=== PATIENT | male | born 1955 | race Caucasian/White ===

== ENCOUNTER 2023-08-16 22:05 | Inpatient (IN) | payer MEDICARE, OTHER, SELFPAY ==
[2023-08-16 20:10] VITALS: BP 117/96
[2023-08-16 20:36] LABS: % Basophils 0.4 % (0-2); % Eosinophils 0.1 % (0-6); % Immature Granulocytes 0.4 % (0-0.5); % Monocytes 13.5 % (1.7-9.3); % Neutrophils 77.6 % (42.2-75.2); Absolute Basophils 0.1 10^3/uL (0-0.2); Absolute Immature Granulocytes 0.1 10^3/uL (0-0.05); Absolute Lymphocytes 1.1 10^3/uL (1.2-3.4); Absolute Monocytes 1.9 10^3/uL (0.1-0.6); Absolute Neutrophils 10.7 10^3/uL (1.4-6.5); Hematocrit 36.7 % (39.0-52.0); Hemoglobin 12.1 g/dL (13.0-18.0); Mean Corpuscular Hgb 31.6 pg (27.0-31.0); Mean Corpuscular Volume 95.8 fL (80.0-94.0); Mean Platelet Volume 9.9 fL (7.4-10.4); Nucleated Red Blood Cells % 0 % (-); Platelet Count 142 10^3/uL (130-400); Red Blood Cell Count 3.83 10^6/uL (4.70-6.10); Red Cell Dist. Width 15.1 % (11.5-14.5); White Blood Cell Count 13.8 10^3/uL (4.8-10.8)
[2023-08-16 20:40] LABS: Urine Albumin Trace (Neg - Trace); Urine Bilirubin 1+ (Negative); Urine Character Very Cloudy (Clear); Urine Color Amber; Urine Glucose Negative (Negative); Urine Ketone 1+ (Negative); Urine Leukocyte 1+ (Negative); Urine Nitrite Positive (Negative); Urine Occult Blood Trace (Negative); Urine Specific Gravity 1.015 (<1.030); Urine Urobilinogen 4+ (Neg - 1+); Urine pH 6.5 (5.0-9.0)
[2023-08-16 20:47] LABS: Lactic Acid 3.7 mmol/L (0.7-2.0)
[2023-08-16 20:51] LABS: Urine Bacteria Many (Negative)
[2023-08-16 20:52] LABS: Urine Red Blood Cell 0-2 /HPF (0-2)
[2023-08-16 20:53] LABS: Urine White Cell 26-30 /HPF (0-5)
[2023-08-16 20:55] LABS: ALT (SGPT) 13 U/L (0-50); AST (SGOT) 23 U/L (17-59); Albumin 4.1 g/dl (3.5-5.0); Alkaline Phosphatase 70 U/L (38-126); Blood Urea Nitrogen 22 mg/dl (9-20); Calcium 9.4 mg/dl (8.4-10.2); Carbon Dioxide 26 mmol/L (22-30); Chloride 103 mmol/L (98-107); Glucose 108 mg/dl (70-99); Potassium 4.1 mmol/L (3.5-5.1); Sodium 140 mmol/L (135-145); Total Protein 6.9 g/dl (6.3-8.2); eGFR > 60.00
[2023-08-16 21:00] VITALS: BP 110/62
[2023-08-16] MEDS: TYLENOL/FEVERALL 650 MG RECTAL (21:00)
[2023-08-16] MEDS: ROCEPHIN 1000 MG IV (21:00)
--- NOTE | 2023-08-16 21:04 | ED.GENMED ---
History of Present Illness
General
Chief Complaint: Fever
Source: patient and records
Exam Limitations: clinical condition, non verbal-adult, altered mental status and dementia
Time Seen by Provider: 08/16/23 20:36
Nursing documentation reviewed up to this point in time: agreed with
History of Present Illness
History of Present Illness:
68-year-old male from local dementia unit presents with fatigue fever lethargy urinary incontinence
Here is febrile not offering any history, history obtained through the transfer record
Past History
Past History
ED Past Medical History: CAD, Hypercholesterolemia, NIDDM and Other (dementia)
Social History
Tobacco: Non-smoker
Drug: None
Living: correction
Employment: Not employed
Review of Systems
Review of Systems
Other source history: transfer record
All Other Systems: Not applicable
Phy Exam
Physical Exam
Physical Exam:
Physical Exam
General: Febrile nonverbal 68 male
Neck: Dry lip
Heart: Tachycardia
Lungs: no acute respiratory distress. clear bilaterally
Abdomen: Not tender
Neuro: Nonverbal makes eye contact
Skin: no rash
Psychiatric: Unable to assess
Extremities: no edema
Course
Orders/Labs/Results
Orders:
Orders
08/16/23 20:09
Electrocardiogram (*1) Urgent
Reason for Study: Other
Other Reason for Exam: Possible Sepsis
Cardiac Monitoring- Treatment ONCE
EKG- Treatment ONCE
IV Insert/Care/Rem.- Treatment PRN
Straight cath- Treatment ONCE
O2 Therapy [RESP] Urgent
Titrate/Wean O2 to maintain O2 sat greater than (%): 93
Special Instructions: TO MAINTAIN CONTINUOUS O2 SATS > OR = 93%
Pulse Ox/cont/shift [RESP] Urgent
Quantity: 1
Special Instructions: CONTINUOUS
08/16/23 20:18
Complete Blood Count/With Diff Urgent
Comprehensive Metabolic Panel Urgent
Lactic Acid Q4H
Comment: ON ICE, CANCEL 2ND ORDER IF FIRST LACTIC ACID LEVEL <2
Urinalysis Reflex To Culture Urgent
Date Specimen was Collected: 08/16/23
Time Specimen was Collected: 20:09
Urine Microscopic Reflex Cult Urgent
Urine Culture Urgent
ANDRZEJ Source: U
Specimen Description:
Date Specimen was Collected: 08/16/23
Time Specimen was Collected: 20:09
08/16/23 20:54
Add On- LAB Urgent
Tests Added?: depakene
Abdomen/Pelvis wo Contrast CT [CT Abd/pelvis Wo Iv Cont] Urgent
Comment:
Reason For Exam: fever uti
CR Chest Portable - 1 View Urgent
Comment:
Reason For Exam: fever
Reason Study Needs to be Portable: Unable to Transport
08/16/23 20:55
Acetaminophen [Tylenol/Feverall] 650 mg RECTAL NOW STA
CefTRIAXone [Rocephin] 1,000 mg IV NOW STA
08/16/23 20:57
Depakane Urgent
Comment: COLLECT. PLAIN RED TOP.
08/17/23 00:15
Lactic Acid Q4H
Comment: ON ICE, CANCEL 2ND ORDER IF FIRST LACTIC ACID LEVEL <2
Abnormal Lab Results
08/16/23
20:18
WBC 13.8 H 10^3/uL
(4.8-10.8)
RBC 3.83 L 10^6/uL
(4.70-6.10)
Hgb 12.1 L g/dL
(13.0-18.0)
Hct 36.7 L %
(39.0-52.0)
MCV 95.8 H fL
(80.0-94.0)
MCH 31.6 H pg
(27.0-31.0)
RDW 15.1 H %
(11.5-14.5)
Abs Immat Gran (auto) 0.1 H 10^3/uL
(0-0.05)
Absolute Neuts (auto) 10.7 H 10^3/uL
(1.4-6.5)
Absolute Lymphs (auto) 1.1 L 10^3/uL
(1.2-3.4)
Absolute Monos (auto) 1.9 H 10^3/uL
(0.1-0.6)
Neutrophils % 77.6 H %
(42.2-75.2)
Lymphocytes % 8.0 L %
(20.5-51.1)
Monocytes % 13.5 H %
(1.7-9.3)
BUN 22 H mg/dl
(9-20)
Glucose 108 H mg/dl
(70-99)
Lactic Acid 3.7 H mmol/L
(0.7-2.0)
Total Bilirubin 2.0 H mg/dl
(0.2-1.3)
Urine Ketones 1+ A
(Negative)
Ur Occult Blood Reflex Trace A
(Negative)
Urine Nitrite (Reflex) Positive A
(Negative)
Urine Bilirubin 1+ A
(Negative)
Urine Urobilinogen 4+ A
(Neg - 1+)
Leukocyte Esterase Rfl 1+ A
(Negative)
Urine WBC (Reflex) 26-30 A /HPF
(0-5)
Urine Bacteria (Reflex) Many A
(Negative)
08/16/23 20:18
08/16/23 20:18
Vital Signs
Initial and Last Documented VS:
Initial Vital Signs
Temp Pulse Resp BP Pulse Ox
101.0 F H 84 14 117/96 98
08/16/23 20:10 08/16/23 20:10 08/16/23 20:10 08/16/23 20:10 08/16/23 20:10
Last Documented Vital Signs
Temp Pulse Resp BP Pulse Ox
101.0 F H 83 14 117/96 98
08/16/23 20:10 08/16/23 20:30 08/16/23 20:10 08/16/23 20:10 08/16/23 20:45
MDM/Problems Addressed
Differential Diagnosis Includes:
Sepsis UTI bacteremia pneumonia
MDM/Problems Addressed:
Fever confusion
Chronic conditions affecting care: DM, HTN and Neurological disorder
Acute Exacerbation and/or Progression of Chronic Illness: DM, HTN and Neurological disorder
*Radiology
Radiology exam reviewed: preliminary read by ED provider
*Pulse Oximetry
Patient hypoxic: no
*EKG
Interpreted by ED Provider?: Yes
Interpretation: abnormal
Comparison EKG: no comparison EKG present
Heart Rate: 88
Rate: normal
Rhythm: sinus
Ischemia: non-specific ST changes
*Distribution Spec Interpretation
Rate: normal
Interpretation: normal
Heart Rate: 88
Rhythm: sinus
*Critical Care Note
Total Time (30-74mins, 75-104mins- exclusive of procedures): 15
Update Note
Update Note:
Update febrile nonverbal male, looks like urinary source, urine cultures are pending will start on antibiotics, check CT to rule out any urinary obstruction also check x-ray of the chest will require admission
ED Attending Note
-
Portions of this chart may have been created with voice recognition software.� Occasional wrong word or��sound alike� substitutions may have occurred due to the inherent limitations of voice recognition software.
Discharge Plan
Departure
Prescriptions:
No Action
atorvastatin 40 MG tablet
40 mg PO HS
acetaminophen 325 MG tablet
650 mg PO Q4HPRN MDD 3000 mg PRN (Reason: mild pain/fever >101)
thiamine HCl (vitamin B1) 100 MG tablet
100 mg PO DAILY
melatonin 3 MG tablet
3 mg PO HS
clopidogrel 75 MG tablet
75 mg PO DAILY
amlodipine 5 MG tablet
2.5 mg PO DAILY
divalproex 500 MG tablet,delayed release (DR/EC)
500 mg PO BID
Rx Instructions:
take with 250 mg tab for total of 750 mg
magnesium hydroxide 30 ML suspension
30 ml PO [id number] PRN (Reason: if no bm x 3 days)
bisacodyl [OneLAX Bisacodyl] 10 MG suppository
10 mg KS DAILYPRN PRN (Reason: if no bm 24 hrs after mom)
diphenhydramine HCl [Banophen] 25 MG capsule
25 mg PO Q6HPRN PRN (Reason: itching)
Enema 135 ML enema
118 ml KS DAILYPRN PRN (Reason: if no bm 24 hrs after bisacodyl supp)
nitroglycerin 0.4 MG tablet, sublingual
0.4 mg sublingual [id number] PRN (Reason: chest pain)
quetiapine [Seroquel] 50 MG tablet
25 mg PO HS
divalproex [Depakote] 250 mg Tablet,Delayed Release (Dr/Ec)
250 mg PO BID
Rx Instructions:
take with 500 mg tab for total of 750 mg
Theragen Tablet
1 tab PO DAILY
risperidone [Risperdal] 0.5 mg Tablet
0.5 mg PO DAILY
clonazepam 0.25 mg Tablet,Disintegrating
0.25 mg PO Q12H
Aveeno Anti-Itch 1-3 % Lotion
1 applic TOPICAL Q6HPRN PRN (Reason: puritis)
cholecalciferol (vitamin D3) 50 mcg (2,000 unit) Tablet
50 mcg PO NOON
Referrals:
Janet Carmona CRNP [Family Provider] -
Interventions
Interventions:
*Risk Screen - Suicide Last Done: 08/16/23 20:10
*General Assessment Last Done: 08/16/23 20:10
*Neglect/Abuse Screening Last Done: 08/16/23 20:10
ED- Fall Risk Assessment Last Done: 08/16/23 20:52
ED- Neurological Assessment Last Done: 08/16/23 20:52
ED-Skin Assessment Last Done: 08/16/23 20:52
Discharge Date and Time
Print Language: YI
--- NOTE | 2023-08-16 21:56 | HPS.HSE ---
Family Physician
-
Family Physician: KVNG Espinoza
Chief Complaint
-
lethargy, fever
History of Present Illness
68-year-old male past medical history of CAD, hypertension, hypercholesteremia, diabetes, dementia, presenting from dementia unit for fatigue, lethargy and urine incontinence and fever. No history can be obtained from patient.
Medical History
Past Medical History
Past Medical History: Reports Other (CAD, hypertension, hypercholesteremia, diabetes, dementia,)
Past Surgical History: Reports None
Social History
Tobacco: Non-smoker
Alcohol: None
Drug: None
Family History
Family History: Not pertinent
Allergies / Home Medications
Allergies reflects when Allergies were last updated in [facility].
Home Medications with original date entered in [facility]
Allergy/Medication List:
Allergies
Allergy/AdvReac Type Severity Reaction Status Date / Time
No Known Allergies Allergy Unverified 07/23/21 02:09
Home Medications
acetaminophen 325 mg tablet 650 mg PO Q4HPRN PRN mild pain/fever >101 07/22/21
amlodipine 5 mg tablet 2.5 mg PO DAILY 07/22/21
atorvastatin 40 mg tablet 40 mg PO HS 07/22/21
bisacodyl 10 mg rectal suppository (OneLAX Bisacodyl) 10 mg ND DAILYPRN PRN if no bm 24 hrs after mom 07/22/21
clopidogrel 75 mg tablet 75 mg PO DAILY 07/22/21
diphenhydramine HCl 25 mg capsule (Banophen) 25 mg PO Q6HPRN PRN itching 07/22/21
divalproex 500 mg tablet,delayed release 500 mg PO BID 07/22/21
magnesium hydroxide 400 mg/5 mL oral suspension 30 ml PO [id number] PRN if no bm x 3 days 07/22/21
melatonin 3 mg tablet 3 mg PO HS 07/22/21
nitroglycerin 0.4 mg sublingual tablet 0.4 mg sublingual [id number] PRN chest pain 07/22/21
quetiapine 50 mg tablet (Seroquel) 25 mg PO HS 07/22/21
sodium phosphates 19 gram-7 gram/118 mL enema (Enema) 118 ml ND DAILYPRN PRN if no bm 24 hrs after bisacodyl supp 07/22/21
thiamine HCl (vitamin B1) 100 mg tablet 100 mg PO DAILY 07/22/21
cholecalciferol (vitamin D3) 50 mcg (2,000 unit) tablet 50 mcg PO NOON 08/16/23
clonazepam 0.25 mg disintegrating tablet 0.25 mg PO Q12H 08/16/23
divalproex 250 mg tablet,delayed release (Depakote) 250 mg PO BID 08/16/23
pramoxine-calamine 1 %-3 % lotion (Aveeno Anti-Itch) 1 applic topical Q6HPRN PRN puritis 08/16/23
risperidone 0.5 mg tablet (Risperdal) 0.5 mg PO DAILY 08/16/23
therapeutic multivitamin 1 tab PO DAILY 08/16/23
Review of Systems
-
History Source: [facility]
A 12 point ROS was completed and negative except as noted: No
Physical Exam
Vital Signs
Vital Signs
Temp Pulse Resp BP Pulse Ox
101.0 F H 76 15 110/62 86
08/16/23 20:10 08/16/23 21:45 08/16/23 21:45 08/16/23 21:00 08/16/23 21:30
Physical Exam
General: Well Developed, Well Nourished and No Apparent Distress
HEENT: NormoCephalic, Moist mucous membranes and Atraumatic
Respiratory: Clear
Cardiac: S1/S2 and Regular Rhythm; No Murmur or Rub
GI: Soft, Non Tender, Non Distended and Normal Bowel Sounds; No Organomegaly
Rectal: Deferred by Provider
Musculoskeletal: No Clubbing, No Cyanosis and No Edema
Skin: No Rash
Neuro: Nonfocal/grossly intact
Laboratory Results
-
08/16/23 20:18
08/16/23 20:18
Laboratory Results
Lactic Acid 3.7 mmol/L (0.7-2.0) H 08/16/23 20:18
Total Bilirubin 2.0 mg/dl (0.2-1.3) H 08/16/23 20:18
AST 23 U/L (17-59) 08/16/23 20:18
ALT 13 U/L (0-50) 08/16/23 20:18
Alkaline Phosphatase 70 U/L (38-126) 08/16/23 20:18
Data Reviewed
-
Lab Data: Labs Reviewed by me
Old Records: Reviewed
Impression/Plan
-
IMPRESSION:
PLAN:
# Sepsis (fever, leukocytosis) secondary to urinary tract fraction
-Urinalysis shows 26-30 WBC, cloudy urine,
-IV fluids
-Urine culture, blood culture
-Ceftriaxone
-Check CT abdomen pelvis to rule out obstructing stone
-Patient likely cannot take oral medications at this time, hold medications, n.p.o.
Coronary artery disease
-Continue Plavix when able
Essential hypertension
-Continue amlodipine when able
Hypercholesterolemia
-Continue statin when able
Type 2 diabetes
Dementia
History of depression/psychosis
-Continue Risperdal, Seroquel, Depakote, clonazepam when more awake and alert
Full code
DVT prophylaxis�heparin
N.p.o.
[2023-08-16 22:00] VITALS: BP 115/55
[2023-08-16 22:03] LABS: Depakane 38.6 ug/ml (50.0-120.0)
[2023-08-16 23:42] VITALS: BP 127/57; BMI 19.2
--- NOTE | 2023-08-16 23:44 | PTCARENOTE ---
Receive pt from ED via stretcher. Pt bedrest, pulled over onto bed. Nonverbal but does turn head to his name being called. Resting comfortably in bed. Oriented to floor, call gutierrez within reach.
[2023-08-16] MEDS: NSS 1000 IV (23:48)
[2023-08-16] MEDS: ZITHROMAX INFUSION 250 IV (23:52)
[2023-08-17 00:52] LABS: Lactic Acid 0.6 mmol/L (0.7-2.0)
[2023-08-17 07:02] VITALS: BP 153/65
[2023-08-17 07:57] LABS: % Basophils 0.3 % (0-2); % Eosinophils 0.2 % (0-6); % Immature Granulocytes 0.5 % (0-0.5); % Lymphocytes 12.5 % (20.5-51.1); % Monocytes 13.8 % (1.7-9.3); % Neutrophils 72.7 % (42.2-75.2); Absolute Immature Granulocytes 0.1 10^3/uL (0-0.05); Absolute Lymphocytes 1.2 10^3/uL (1.2-3.4); Absolute Monocytes 1.3 10^3/uL (0.1-0.6); Absolute Neutrophils 7.1 10^3/uL (1.4-6.5); Hematocrit 30.1 % (39.0-52.0); Hemoglobin 10.6 g/dL (13.0-18.0); Mean Corp Hgb Conc. 35.2 g/dL (33.0-37.0); Mean Corpuscular Hgb 32.2 pg (27.0-31.0); Mean Corpuscular Volume 91.5 fL (80.0-94.0); Mean Platelet Volume 10.4 fL (7.4-10.4); Nucleated Red Blood Cells % 0 % (-); Platelet Count 115 10^3/uL (130-400); Red Blood Cell Count 3.29 10^6/uL (4.70-6.10); White Blood Cell Count 9.7 10^3/uL (4.8-10.8)
[2023-08-17] MEDS: FLUSH (NSS) 1 FLUSH IV (08:06)
[2023-08-17] MEDS: HEPARIN 5000 UNITS SC ×2 (08:06→21:23)
[2023-08-17 08:18] LABS: ALT (SGPT) < 10 U/L (0-50); AST (SGOT) 18 U/L (17-59); Albumin 3.2 g/dl (3.5-5.0); Alkaline Phosphatase 56 U/L (38-126); Blood Urea Nitrogen 16 mg/dl (9-20); Calcium 8.3 mg/dl (8.4-10.2); Carbon Dioxide 24 mmol/L (22-30); Chloride 107 mmol/L (98-107); Estimated Creatinine Clearance 94 ml/min; Glucose 77 mg/dl (70-99); Potassium 3.9 mmol/L (3.5-5.1); Sodium 137 mmol/L (135-145); Total Bilirubin 1.6 mg/dl (0.2-1.3); Total Protein 5.7 g/dl (6.3-8.2); eGFR > 60.00
--- NOTE | 2023-08-17 08:20 | W.PN.HOSP.TC ---
Today's Communication/Plan
-
Monitor for QTc prolongation as patient is on Azithromycin along with Risperdal and Seroquel
Continue telemetry monitoring
Continue antibiotics
Assessment / Plan
Assessment / Plan
Physical Exam
General: Well Developed, Well Nourished and No Apparent Distress
HEENT: Normocephalic
Respiratory: Clear
Cardiac: S1/S2 and Regular Rhythm
GI: Soft, Non Tender, Non Distended and Normal Bowel Sounds
Musculoskeletal: No Cyanosis and No Edema
Skin: Warm. Dry.
Neuro: Nonfocal/grossly intact

CT Abdomen Pelvis (as per radiologist's report)
IMPRESSION:
1. MILD RIGHT LOWER LOBE PNEUMONIA.
2. Mild diffuse urinary bladder wall thickening consistent with cystitis.
3. Mildly enlarged prostate gland.
4. Moderate amount of fecal material throughout the colon suggesting constipation.
5. Fusiform infrarenal abdominal aortic aneurysm (2.6 cm diameter).
6. Previous cholecystectomy.
7. 1.2 cm left adrenal mass (possibly an adenoma).

Assessment/Plan
#Sepsis (fever, leukocytosis) secondary to urinary tract fraction/cystitis and pneumonia
#RLL Pneumonia
#Cystitis
-Urinalysis showed 26-30 WBC, cloudy urine
-IV fluids
-Follow urine culture and blood culture
-Ceftriaxone and Azithromycin
#Constipation
-Bowel regimen ordered, continue
Coronary artery disease
-Continue Plavix
-Continue Atorvastatin
Essential hypertension
-Continue amlodipine
Hypercholesterolemia
-Continue statin
Type 2 diabetes
-Continue glucose accuchecks
Dementia
History of depression/psychosis
-Continue Risperdal, Seroquel, Depakote, clonazepam
-Monitor QTc as patient is on Azithromycin along with Risperdal and Seroquel
Full code
DVT prophylaxis�heparin
Diet: IDDSI 4 Diet and Thin Liquids as per speech therapist text on 08/17/23
Anticipated Discharge: > 48 hours
Subjective/Interval History
-
Date of Service: August 17, 2023
Patient was seen and examined. He was sleeping comfortably.
Objective Data
-
Labs:
Laboratory Results
08/16/23 08/17/23 08/17/23
20:18 07:03 07:41
WBC 13.8 H Cancelled 9.7
Hgb 12.1 L Cancelled 10.6 L
Hct 36.7 L Cancelled 30.1 L
Plt Count 142 Cancelled 115 L
Sodium 140 Cancelled 137
Potassium 4.1 Cancelled 3.9
Chloride 103 Cancelled 107
Carbon Dioxide 26 Cancelled 24
BUN 22 H Cancelled 16
Creatinine 0.8 Cancelled 0.7
Glucose 108 H Cancelled 77
Calcium 9.4 Cancelled 8.3 L
Total Bilirubin 2.0 H Cancelled 1.6 H
AST 23 Cancelled 18
ALT 13 Cancelled < 10
Alkaline Phosphatase 70 Cancelled 56
Vital Signs:
Vital Signs
Temp Pulse Resp BP Pulse Ox
98.8 F 77 16 153/65 99
08/17/23 07:02 08/17/23 07:02 08/17/23 07:02 08/17/23 07:02 08/17/23 07:02
I&O
08/16/23 08/17/23 08/18/23
06:59 06:59 06:59
Intake Total 800 / 800
Balance 800 / 800
[2023-08-17] MEDS: NSS 1000 IV ×2 (09:43→17:31)
--- NOTE | 2023-08-17 12:04 | PTOTSP ---
Speech Therapy
Presentation: Patient is unable to consistently follow commands; despite ample cues from CONSUMER RELATIONS COMPLAINT CLERK. Patient is nonverbal, utilizing nonintelligible vocalizations throughout the session which did not appear to be associated with requesting wants/ needs. Of
note, patient has documented dementia dx.
Swallowing Function: Patient was observed with several sips of thin liquids via tsp and straw, presentations of ice chips, bites of puree and mechanical soft solids. Patient appeared to tolerate the thin liquids, ice chips, and puree solids as he
did not exhibit any overt clinical s/sx of aspiration or difficulty with mastication/ manipulation. Patient did, of note, demonstrated decreased oral coordination when presented with mechanical soft solids as he was unable to pull the bolus from the
spoon into his oral cavity.
Given patient's wax/ wane alertness, current hospitalization, and clinical presentation, recommend trial of puree solids and thin liquids with FULL assistance and supervision with PO. Patient would likely benefit from a VSE given his CXR in hopes to
r/o silent aspiration and quantify swallowing function.
Recommendations:
1) Trial of IDDSI Level 4; puree solids and thin liquids
2) Small, single bites and sips
3) FULL assistance and supervision with PO
4) PO only when alert
5) VSE to r/o silent aspiration and quantify swallowing function
6) Medications as tolerated
Plan: CONSUMER RELATIONS COMPLAINT CLERK will continue to follow; pending hospitalization.
[2023-08-17 14:19] VITALS: BP 118/59
[2023-08-17] MEDS: NORVASC 2.5 MG PO (14:20)
[2023-08-17] MEDS: PLAVIX 75 MG PO (14:21)
[2023-08-17] MEDS: RISPERDAL 0.5 MG PO (14:21)
[2023-08-17] MEDS: THERAGRAN 1 TABLET PO (14:21)
[2023-08-17] MEDS: VITAMIN B1 100 MG PO (14:21)
[2023-08-17] MEDS: VITAMIN D3 (cholecalciferol) 50 MCG PO (14:21)
[2023-08-17 15:42] VITALS: BP 117/62
[2023-08-17] MEDS: MIRALAX 17 GRAMS PO (17:32)
[2023-08-17] MEDS: KLONOPIN 0.25 MG PO (17:32)
[2023-08-17 17:48] LABS: Glucose - Point of Care 126 mg/dl (70-99)
--- NOTE | 2023-08-17 17:55 | PTCARENOTE ---
Pt now on telemetry per orders, SR, HR 70s
[2023-08-17 19:16] VITALS: BP 91/54
[2023-08-17 21:21] LABS: Glucose - Point of Care 117 mg/dl (70-99)
[2023-08-17] MEDS: STERILE WATER FOR INJECTION 10 ML IV (21:23)
[2023-08-17] MEDS: DEPAKOTE (12 HR RELEASE) 250 MG PO (21:23)
[2023-08-17] MEDS: SEROQUEL 25 MG PO (21:23)
[2023-08-17] MEDS: DEPAKOTE (12 HR RELEASE) 500 MG PO (21:23)
[2023-08-17] MEDS: ROCEPHIN 1000 MG IV (21:23)
[2023-08-17] MEDS: MELATONIN 3 MG PO (21:24)
[2023-08-17] MEDS: LIPITOR 40 MG PO (21:24)
[2023-08-17] MEDS: SENOKOT-S 1 TABLET PO (21:24)
[2023-08-17] MEDS: ZITHROMAX INFUSION 250 IV (23:11)
[2023-08-17 23:47] VITALS: BP 107/58
[2023-08-18] VITALS (9 sets, daily range): BP systolic 102–134; BP diastolic 45–111; PULSE 70; O2SAT 96
[2023-08-18] MEDS: NSS 1000 IV ×3 (02:53→17:09)
[2023-08-18] MEDS: KLONOPIN 0.25 MG PO ×2 (05:39→17:14)
[2023-08-18] MEDS: VITAMIN B1 100 MG PO (08:02)
[2023-08-18] MEDS: THERAGRAN 1 TABLET PO (08:02)
[2023-08-18] MEDS: NORVASC 2.5 MG PO (08:03)
[2023-08-18] MEDS: SENOKOT-S 1 TABLET PO ×2 (08:04→21:10)
[2023-08-18] MEDS: DEPAKOTE (12 HR RELEASE) 500 MG PO ×2 (08:05→21:08)
[2023-08-18] MEDS: PLAVIX 75 MG PO (08:05)
[2023-08-18] MEDS: MIRALAX 17 GRAMS PO (08:06)
[2023-08-18] MEDS: DEPAKOTE (12 HR RELEASE) 250 MG PO ×2 (08:06→21:09)
[2023-08-18] MEDS: HEPARIN 5000 UNITS SC ×2 (08:07→21:09)
[2023-08-18] MEDS: RISPERDAL 0.5 MG PO (08:08)
--- NOTE | 2023-08-18 09:20 | PTOTSP ---
Speech Language Pathology
VIDEOFLUOROSCOPIC SWALLOWING EXAMINATION (VSE) completed. Mild-mod oral dysphagia noted characterized by decreased mastication. Mod pharyngeal dysphagia noted. Penetration and/or aspiration noted with all consistencies trialed except puree. Pt
unable to follow commands for cough or any compensatory strategies. Pt is at high risk for aspiration with all P.O. given penetration with all textures except puree, which pt was unable to clear.
Recommend:
(1) Consider NPO vs IDDSI Level 4 (Puree) and Mildly Thick liquids if family willing to accept risk for aspiration
(2) Aspiration precautions if diet considered: slow rate, sit upright, full supervision
(3) Meds crushed in puree as able
(4) BOX STRAPPER to continue to follow
[2023-08-18 09:35] LABS: % Basophils 0.7 % (0-2); % Eosinophils 1.2 % (0-6); % Immature Granulocytes 0.4 % (0-0.5); % Lymphocytes 25.1 % (20.5-51.1); % Monocytes 12.3 % (1.7-9.3); % Neutrophils 60.3 % (42.2-75.2); Absolute Eosinophils 0.1 10^3/uL (0-0.7); Absolute Lymphocytes 1.4 10^3/uL (1.2-3.4); Absolute Monocytes 0.7 10^3/uL (0.1-0.6); Absolute Neutrophils 3.4 10^3/uL (1.4-6.5); Hemoglobin 11.5 g/dL (13.0-18.0); Mean Corp Hgb Conc. 35.9 g/dL (33.0-37.0); Mean Corpuscular Hgb 31.8 pg (27.0-31.0); Mean Corpuscular Volume 88.4 fL (80.0-94.0); Mean Platelet Volume 10.7 fL (7.4-10.4); Nucleated Red Blood Cells % 0 % (-); Platelet Count 124 10^3/uL (130-400); Red Blood Cell Count 3.62 10^6/uL (4.70-6.10); Red Cell Dist. Width 14.5 % (11.5-14.5); White Blood Cell Count 5.7 10^3/uL (4.8-10.8)
[2023-08-18 10:04] LABS: ALT (SGPT) 17 U/L (0-50); AST (SGOT) 27 U/L (17-59); Albumin 3.4 g/dl (3.5-5.0); Alkaline Phosphatase 67 U/L (38-126); Blood Urea Nitrogen 11 mg/dl (9-20); Calcium 8.6 mg/dl (8.4-10.2); Carbon Dioxide 23 mmol/L (22-30); Chloride 108 mmol/L (98-107); Estimated Creatinine Clearance 110 ml/min; Glucose 110 mg/dl (70-99); Magnesium 2.1 mg/dl (1.6-2.3); Potassium 3.7 mmol/L (3.5-5.1); Sodium 141 mmol/L (135-145); Total Bilirubin 1.1 mg/dl (0.2-1.3); eGFR > 60.00
[2023-08-18] MEDS: VITAMIN D3 (cholecalciferol) PO (12:50)
[2023-08-18 13:02] LABS: Glucose - Point of Care 136 mg/dl (70-99)
[2023-08-18 17:10] LABS: Glucose - Point of Care 128 mg/dl (70-99)
[2023-08-18] MEDS: VITAMIN D3 (cholecalciferol) 50 MCG PO (17:10)
--- NOTE | 2023-08-18 18:17 | W.PN.HOSP.TC ---
Today's Communication/Plan
-
Continue antibiotics; await microbiology sensitivities
Assessment / Plan
Assessment / Plan
Physical Exam
General: Well Developed, Well Nourished and No Apparent Distress
HEENT: Normocephalic
Respiratory: Clear
Cardiac: S1/S2 and Regular Rhythm
GI: Soft, Non Tender, Non Distended and Normal Bowel Sounds
Musculoskeletal: No Cyanosis and No Edema
Skin: Warm. Dry.
Neuro: Nonfocal/grossly intact

CT Abdomen Pelvis (as per radiologist's report)
IMPRESSION:
1. MILD RIGHT LOWER LOBE PNEUMONIA.
2. Mild diffuse urinary bladder wall thickening consistent with cystitis.
3. Mildly enlarged prostate gland.
4. Moderate amount of fecal material throughout the colon suggesting constipation.
5. Fusiform infrarenal abdominal aortic aneurysm (2.6 cm diameter).
6. Previous cholecystectomy.
7. 1.2 cm left adrenal mass (possibly an adenoma).

Assessment/Plan
#Sepsis (fever, leukocytosis) secondary to urinary tract fraction/cystitis and pneumonia
#RLL Pneumonia
#Cystitis
-Urinalysis showed 26-30 WBC, cloudy urine
-IV fluids
-Follow urine culture and blood culture: urine culture growing E. coli; await sensitivities
-Ceftriaxone and Azithromycin
#Constipation
-Bowel regimen ordered, continue
Coronary artery disease
-Continue Plavix
-Continue Atorvastatin
Essential hypertension
-Continue amlodipine
Hypercholesterolemia
-Continue statin
Type 2 diabetes
-Continue glucose accuchecks
Dementia
History of depression/psychosis
-Continue Risperdal, Seroquel, Depakote, clonazepam
-Monitor QTc as patient is on Azithromycin along with Risperdal and Seroquel
Full code
DVT prophylaxis�heparin
Diet: NPO except meds due to risk of aspiration -- will need to check with patient's family if they want him on a diet
Anticipated Discharge: > 48 hours
Subjective/Interval History
-
Date of Service: August 18, 2023
Patient was seen and examined. He was sleeping comfortably at the time he was seen.
Objective Data
-
Labs:
Laboratory Results
08/18/23
09:02
WBC 5.7
Hgb 11.5 L
Hct 32.0 L
Plt Count 124 L
Sodium 141
Potassium 3.7
Chloride 108 H
Carbon Dioxide 23
BUN 11
Creatinine 0.6 L
Glucose 110 H
Calcium 8.6
Total Bilirubin 1.1
AST 27
ALT 17
Alkaline Phosphatase 67
Vital Signs:
Vital Signs
Temp Pulse Resp BP Pulse Ox
98.2 F 68 20 102/73 98
08/18/23 15:58 08/18/23 15:58 08/18/23 15:58 08/18/23 15:58 08/18/23 15:58
I&O
08/17/23 08/18/23 08/19/23
06:59 06:59 06:59
Intake Total 800 / 800 1864
Balance 800 / 800 1864
[2023-08-18] MEDS: STERILE WATER FOR INJECTION 10 ML IV (21:09)
[2023-08-18] MEDS: ROCEPHIN 1000 MG IV (21:09)
[2023-08-18] MEDS: LIPITOR 40 MG PO (21:10)
[2023-08-18] MEDS: MELATONIN 3 MG PO (21:10)
[2023-08-18] MEDS: SEROQUEL 25 MG PO (21:10)
[2023-08-19] MEDS: ZITHROMAX INFUSION 250 IV ×2 (02:50→23:09)
[2023-08-19] MEDS: NSS 1000 IV ×2 (02:50→15:57)
[2023-08-19 03:05] VITALS: BP 106/71
[2023-08-19 04:02] LABS: Glucose - Point of Care 69 mg/dl (70-99)
[2023-08-19] MEDS: DEXTROSE 50% SYRINGE 12.5 GRAMS IV (04:15)
[2023-08-19 04:31] LABS: Glucose - Point of Care 132 mg/dl (70-99)
[2023-08-19] MEDS: KLONOPIN 0.25 MG PO ×2 (05:14→17:31)
[2023-08-19 06:01] LABS: Glucose - Point of Care 100 mg/dl (70-99)
[2023-08-19 07:35] VITALS: BP 128/93
[2023-08-19] MEDS: MIRALAX PO (09:49)
[2023-08-19] MEDS: NORVASC 2.5 MG PO (09:50)
[2023-08-19] MEDS: DEPAKOTE (12 HR RELEASE) 250 MG PO ×2 (09:51→20:55)
[2023-08-19] MEDS: THERAGRAN 1 TABLET PO (09:51)
[2023-08-19] MEDS: PLAVIX 75 MG PO (09:51)
[2023-08-19] MEDS: SENOKOT-S 1 TABLET PO ×2 (09:51→20:55)
[2023-08-19] MEDS: DEPAKOTE (12 HR RELEASE) 500 MG PO ×2 (09:52→20:54)
[2023-08-19] MEDS: HEPARIN 5000 UNITS SC ×2 (09:53→20:55)
[2023-08-19] MEDS: RISPERDAL 0.5 MG PO (09:53)
[2023-08-19] MEDS: VITAMIN B1 100 MG PO (09:53)
[2023-08-19 11:03] VITALS: BP 127/67
[2023-08-19 11:52] LABS: Glucose - Point of Care 93 mg/dl (70-99)
--- NOTE | 2023-08-19 14:34 | W.PN.HOSP.TC ---
Today's Communication/Plan
-
Switch to oral antibiotics
GI consulted for PEG feeding tube evaluation -- appreciate their evaluation and them discussing with patient's family tomorrow
Assessment / Plan
Assessment / Plan
Physical Exam
General: Not in acute distress
HEENT: Normocephalic
Respiratory: CTAB
Cardiac: S1/S2 and Regular Rhythm
GI: Soft, Non Tender, Non Distended and Normal Bowel Sounds
Musculoskeletal: No Cyanosis and No Edema
Skin: Warm. Dry.
Neuro: Nonfocal/grossly intact

CT Abdomen Pelvis (as per radiologist's report)
IMPRESSION:
1. MILD RIGHT LOWER LOBE PNEUMONIA.
2. Mild diffuse urinary bladder wall thickening consistent with cystitis.
3. Mildly enlarged prostate gland.
4. Moderate amount of fecal material throughout the colon suggesting constipation.
5. Fusiform infrarenal abdominal aortic aneurysm (2.6 cm diameter).
6. Previous cholecystectomy.
7. 1.2 cm left adrenal mass (possibly an adenoma).

Assessment/Plan
#Sepsis (fever, leukocytosis) secondary to urinary tract fraction/cystitis and pneumonia
#RLL Pneumonia
#Cystitis
-Urinalysis showed 26-30 WBC, cloudy urine
-IV fluids
-Follow urine culture and blood culture: urine culture growing E. coli sensitive to Cefazolin: switch to Cephalexin PO to complete 7 total days of antibiotics
-Completed course of Azithromycin
#Risk for Aspiration with PO Intake
-Patient's daughter Sophia is aware
-Consulted GI as patient's [place] Orders for Life-Sustaining Treatment for (POLST) form in patient's chart says to trial tube feeding -- Dr. Steiner will see patient and call patient's daughter Sophia tomorrow about this
#Constipation
-Bowel regimen ordered, continue
Coronary artery disease
-Continue Plavix
-Continue Atorvastatin
Essential hypertension
-Continue amlodipine
Hypercholesterolemia
-Continue statin
Type 2 diabetes
-Continue glucose accuchecks
Dementia
History of depression/psychosis
-Continue Risperdal, Seroquel, Depakote, clonazepam
-Monitor QTc as patient received Azithromycin along with Risperdal and Seroquel
Full code
DVT prophylaxis�heparin
Diet: NPO except meds due to risk of aspiration
On August 18, 2023 and August 19, 2023, I spoke with patient's daughter Sophia Cardona, I told her patient has a risk of aspiration when continued on a pureed or higher level diet. Sophia mentioned she will talk to her family whether to keep patient NPO or
give him Pureed diet. GI also consulted for PEG feeding tube evaluation.
Anticipated Discharge: > 48 hours
Subjective/Interval History
-
Date of Service: August 19, 2023
Patient was seen and examined. No new events or complaints reported.
Objective Data
-
Vital Signs:
Vital Signs
Temp Pulse Resp BP Pulse Ox
98.6 F 70 18 127/67 93
08/19/23 11:03 08/19/23 11:03 08/19/23 11:03 08/19/23 11:03 08/19/23 11:03
I&O
08/18/23 08/19/23 08/20/23
06:59 06:59 06:59
Intake Total 5 / 1865 1680 / 1680
Output Total 3000 / 3000
Balance 1865 / 1865 -1320 / -1320
[2023-08-19 15:20] VITALS: BP 115/88
[2023-08-19] MEDS: VITAMIN D3 (cholecalciferol) 50 MCG PO (17:31)
[2023-08-19 18:46] LABS: Glucose - Point of Care 83 mg/dl (70-99)
[2023-08-19 19:57] VITALS: BP 128/86
[2023-08-19] MEDS: KEFLEX 500 MG PO (20:55)
[2023-08-19] MEDS: SEROQUEL 25 MG PO (21:00)
[2023-08-19] MEDS: MELATONIN 3 MG PO (21:00)
[2023-08-19] MEDS: LIPITOR 40 MG PO (21:00)
[2023-08-19 23:33] VITALS: BP 103/59
[2023-08-19 23:57] LABS: Glucose - Point of Care 105 mg/dl (70-99)
[2023-08-20] VITALS (7 sets, daily range): BP systolic 98–114; BP diastolic 43–83
[2023-08-20 03:52] LABS: Glucose - Point of Care 82 mg/dl (70-99)
[2023-08-20] MEDS: KLONOPIN 0.25 MG PO ×2 (05:02→17:31)
[2023-08-20] MEDS: NSS 1000 IV ×2 (05:04→17:37)
[2023-08-20 05:10] LABS: Glucose - Point of Care 87 mg/dl (70-99)
--- NOTE | 2023-08-20 08:33 | CON.GI ---
Consultation
-
Date/Time Consultation Requested: 08/20/2023
Date/Time Consultation Performed: 08/20/2023
Requesting Provider: Dr. Fonseca
Performing Provider: Dr. Langley
Reason for Consultation: PEG tube evaluation
Medical History
Chief Complaint / HPI
Chief Complaint: Aspiration pneumonia
History of Present Illness:
68-year-old male with history of dementia who lives in the dementia unit presenting with fever, fatigue, urinary incontinence, noted to have mild leukocytosis on admission, UA positive, cultures showing E. coli, currently treated with antibiotics.
CT scan of the abdomen and pelvis without oral and IV contrast showing mild right lower lobe pneumonia and moderate amount of fecal material throughout the colon suggesting constipation. Chest x-ray also showing mild right lower lobe pneumonia.
Given concern of aspiration, video swallow exam was done which shows airway aspiration with thin liquids. Anterior osteophytes noted from C3-C5 with some impingement in the posterior esophageal wall without obstruction.As per speech mild to
moderate oral dysphagia noted with decreased mastication. Moderate pharyngeal dysphagia noted penetration noted with all consistencies trialed except pur�e. High risk for aspiration. Currently patient n.p.o.
Cannot get any history from patient.
History obtained from Aydee, patient's niece who is an RN and Sophia Beard patient's sister. Previous history of alcohol abuse, possibly causing dementia. Has been at the dementia unit for 3 years now. Has not been having any trouble swallowing
up until March but as per sister, she did get a call from speech pathologist that intermittently he has had some trouble with swallowing. No other GI issues. Unclear if patient ever had upper endoscopy or colonoscopy.
Past Medical History
Past Medical History: CAD, Hypercholesterolemia, NIDDM and Psychiatric (Depression, psychosis)
Past Surgical History: None
Social History
Tobacco: Non-Smoker
Alcohol: Former
Living: Long Term
Family History
Family History: Unable to Obtain
Allergies / Home Medications
Allergy/AdvReac Type Severity Reaction Status Date / Time
No Known Allergies Allergy Unverified 07/23/21 02:09
�Medication �Instructions �Recorded
acetaminophen 325 mg tablet 650 mg PO Q4HPRN PRN mild 07/22/21
pain/fever >101
amlodipine 5 mg tablet 2.5 mg PO DAILY Blood Pressure 07/22/21
atorvastatin 40 mg tablet 40 mg PO HS High Cholesterol 07/22/21
bisacodyl 10 mg rectal suppository 10 mg [place] DAILYPRN PRN if no bm 24 07/22/21
(OneLAX Bisacodyl) hrs after mom
clopidogrel 75 mg tablet 75 mg PO DAILY Blood Clot 07/22/21
Prevention/Tx
diphenhydramine HCl 25 mg capsule 25 mg PO Q6HPRN PRN itching 07/22/21
(Banophen)
divalproex 500 mg tablet,delayed 500 mg PO BID Mental Health/Anxiety 07/22/21
release
magnesium hydroxide 400 mg/5 mL 30 ml PO [id number] PRN if no bm x 3 07/22/21
oral suspension days
melatonin 3 mg tablet 3 mg PO HS Sleep 07/22/21
nitroglycerin 0.4 mg sublingual 0.4 mg sublingual [id number] PRN 07/22/21
tablet chest pain
quetiapine 50 mg tablet (Seroquel) 25 mg PO HS Mental Health/Anxiety 07/22/21
sodium phosphates 19 gram-7 118 ml [place] DAILYPRN PRN if no bm 24 07/22/21
gram/118 mL enema (Enema) hrs after bisacodyl supp
thiamine HCl (vitamin B1) 100 mg 100 mg PO DAILY Supplement 07/22/21
tablet
cholecalciferol (vitamin D3) 50 50 mcg PO NOON Supplement 08/16/23
mcg (2,000 unit) tablet
clonazepam 0.25 mg disintegrating 0.25 mg PO Q12H Mental 08/16/23
tablet Health/Anxiety
divalproex 250 mg tablet,delayed 250 mg PO BID Mental Health/Anxiety 08/16/23
release (Depakote)
pramoxine-calamine 1 %-3 % lotion 1 applic topical Q6HPRN PRN puritis 08/16/23
(Aveeno Anti-Itch)
risperidone 0.5 mg tablet 0.5 mg PO DAILY Mental 08/16/23
(Risperdal) Health/Anxiety
therapeutic multivitamin 1 tab PO DAILY Supplement 08/16/23
Review of Systems
-
Unable to obtain full review of systems at this time due to: Patient Non Verbal
Vital Signs
Temp Pulse Resp BP Pulse Ox
98 F 58 16 102/82 95
08/20/23 07:15 08/20/23 07:15 08/20/23 07:15 08/20/23 07:15 08/20/23 07:15
Physical Exam
Exam
General: No Apparent Distress
Respiratory: Clear
Cardiac: S1/S2 and Regular Rhythm
GI: Soft, Non Tender and Non Distended
Neuro: Other (Nonverbal, opens eyes)
Results
WBC 5.7 10^3/uL (4.8-10.8) 08/18/23 09:02
Hgb 11.5 g/dL (13.0-18.0) L 08/18/23 09:02
Hct 32.0 % (39.0-52.0) L 08/18/23 09:02
MCV 88.4 fL (80.0-94.0) 08/18/23 09:02
Plt Count 124 10^3/uL (130-400) L 08/18/23 09:02
Absolute Neuts (auto) 3.4 10^3/uL (1.4-6.5) 08/18/23 09:02
Sodium 141 mmol/L (135-145) 08/18/23 09:02
Potassium 3.7 mmol/L (3.5-5.1) 08/18/23 09:02
Chloride 108 mmol/L (98-107) H 08/18/23 09:02
Carbon Dioxide 23 mmol/L (22-30) 08/18/23 09:02
BUN 11 mg/dl (9-20) 08/18/23 09:02
Creatinine 0.6 mg/dL (0.7-1.3) L 08/18/23 09:02
Calcium 8.6 mg/dl (8.4-10.2) 08/18/23 09:02
Total Bilirubin 1.1 mg/dl (0.2-1.3) 08/18/23 09:02
AST 27 U/L (17-59) 08/18/23 09:02
ALT 17 U/L (0-50) 08/18/23 09:02
Alkaline Phosphatase 67 U/L (38-126) 08/18/23 09:02
Diagnostic Image Results:
Prior GI Procedures:
EGD:
Colonoscopy:
Assessment / Plan
-
68-year-old male with history of CAD on Plavix, high cholesterol, NIDDM, brought in from correction with fevers, fatigue, noted to have UTI and also right lower lobe pneumonia with concern for aspiration, swallowing eval showing aspiration with
thin liquids and currently NPO.
-Aspiration pneumonia with thin liquids
Speech suggesting n.p.o. versus trial of pur�ed, decreased mastication
I had a discussion with patient's Sister Sophia Beard (cell [phone] and home number [phone]) and patient's niece Aydee, . They want to discuss amongst himself and then get back to us about their decision regarding
feeding tube placement on patient.
Will check with speech regarding trial of pur�ed diet.
Need to hold Plavix for 5 days prior to PEG tube placement
-Constipation, Currently on MiraLAX 17 g daily and Senokot 1 tablet twice a day
Last bowel movement was large and formed 08/19/2023
Continue bowel regimen
-UTI, right lower lobe pneumonia-currently on antibiotics
-
-
Thank you for consultation and allowing me to participate in the patient's care. Please call the personnel records clerk GI physician during the after hours with any questions or concerns.
--- NOTE | 2023-08-20 08:46 | CM ---
Contacted Laura King, [facility] Liaison on 08/18/2023 to request copy of [facility]'s Advance Directive. Fax received on Unit and placed on chart.
Laura confirmed that patient has a bed hold for return.
CM to follow to facilitate discharge back to [facility] when medically ready.
PCP: Janet Carmona
Pharmacy: Meds obtained by SNF
[2023-08-20] MEDS: KEFLEX 500 MG PO (09:36)
[2023-08-20] MEDS: VITAMIN B1 100 MG PO (09:36)
[2023-08-20] MEDS: SENOKOT-S 1 TABLET PO ×2 (09:37→20:30)
[2023-08-20] MEDS: PLAVIX 75 MG PO (09:37)
[2023-08-20] MEDS: NORVASC 2.5 MG PO (09:37)
[2023-08-20] MEDS: RISPERDAL 0.5 MG PO (09:37)
[2023-08-20] MEDS: THERAGRAN 1 TABLET PO (09:38)
[2023-08-20] MEDS: DEPAKOTE (12 HR RELEASE) 250 MG PO ×2 (09:38→20:29)
[2023-08-20] MEDS: DEPAKOTE (12 HR RELEASE) 500 MG PO ×2 (09:38→20:29)
[2023-08-20] MEDS: MIRALAX PO (09:40)
[2023-08-20] MEDS: HEPARIN 5000 UNITS SC ×2 (09:50→20:30)
[2023-08-20 12:05] LABS: Glucose - Point of Care 86 mg/dl (70-99)
--- NOTE | 2023-08-20 13:25 | W.PN.HOSP.TC ---
Today's Communication/Plan
-
PEG feeding tube evaluation
Continue antibiotics
Assessment / Plan
Assessment / Plan
Physical Exam
General: Not in acute distress
HEENT: Normocephalic
Respiratory: CTAB
Cardiac: S1/S2 and Regular Rhythm
GI: Soft, Non Tender, Non Distended and Normal Bowel Sounds
Musculoskeletal: No Cyanosis and No Edema
Skin: Warm. Dry.
Neuro: Nonfocal/grossly intact

CT Abdomen Pelvis (as per radiologist's report)
IMPRESSION:
1. MILD RIGHT LOWER LOBE PNEUMONIA.
2. Mild diffuse urinary bladder wall thickening consistent with cystitis.
3. Mildly enlarged prostate gland.
4. Moderate amount of fecal material throughout the colon suggesting constipation.
5. Fusiform infrarenal abdominal aortic aneurysm (2.6 cm diameter).
6. Previous cholecystectomy.
7. 1.2 cm left adrenal mass (possibly an adenoma).

Assessment/Plan
#Sepsis (fever, leukocytosis) secondary to urinary tract fraction/cystitis and pneumonia
#RLL Pneumonia
#Cystitis
-Urinalysis showed 26-30 WBC, cloudy urine
-IV fluids
-Follow urine culture and blood culture: urine culture growing E. coli sensitive to Cefazolin: switch to oral antibiotics to complete 7 total days of antibiotics
-Completed course of Azithromycin
#Risk for Aspiration with PO Intake
-Patient's daughter Sophia is aware
-Consulted GI as patient's [place] Orders for Life-Sustaining Treatment for (POLST) form in patient's chart says to trial tube feeding -- Dr. Steiner called patient and call patient's daughter Sophia -- who will get back to GI on feeding tube
-If feeding tube is to be placed, Plavix will need to be held for 5 days
#Constipation
-Bowel regimen ordered, continue
Coronary artery disease
-Continue Plavix
-Continue Atorvastatin
Essential hypertension
-Continue amlodipine
Hypercholesterolemia
-Continue statin
Type 2 diabetes
-Continue glucose accuchecks
Dementia
History of depression/psychosis
-Continue Risperdal, Seroquel, Depakote, clonazepam
-Monitor QTc is on QTc prolonging medications Risperdal and Seroquel
Full code
DVT prophylaxis�heparin
Diet: NPO except meds due to risk of aspiration
On August 18, 2023 and August 19, 2023, I spoke with patient's daughter Sophia Cardona, I told her patient has a risk of aspiration when continued on a pureed or higher level diet. Sophia mentioned she will talk to her family whether to keep patient NPO or
give him Pureed diet. GI also consulted for PEG feeding tube evaluation.
Anticipated Discharge: > 48 hours
Subjective/Interval History
-
Date of Service: August 20, 2023
Patient was seen and examined. No new symptoms or complaints.
Objective Data
-
Vital Signs:
Vital Signs
Temp Pulse Resp BP Pulse Ox
98.3 F 69 16 107/83 98
08/20/23 11:33 08/20/23 11:33 08/20/23 11:33 08/20/23 11:33 08/20/23 11:33
I&O
08/19/23 08/20/23 08/21/23
06:59 06:59 06:59
Intake Total 1680 / 1680 1150 / 1150
Output Total 3000 / 3000 2049
Balance -1320 / -1320 -900 / -900
[2023-08-20] MEDS: VITAMIN D3 (cholecalciferol) 50 MCG PO (17:31)
[2023-08-20 17:47] LABS: Glucose - Point of Care 75 mg/dl (70-99)
[2023-08-20] MEDS: OMNICEF 300 MG PO (20:30)
[2023-08-20] MEDS: LIPITOR 40 MG PO (21:40)
[2023-08-20] MEDS: SEROQUEL 25 MG PO (21:40)
[2023-08-20] MEDS: MELATONIN 3 MG PO (21:40)
[2023-08-20 23:56] LABS: Glucose - Point of Care 91 mg/dl (70-99)
[2023-08-21] VITALS (7 sets, daily range): BP systolic 88–140; BP diastolic 58–69; BMI 19.2
[2023-08-21 03:18] LABS: Glucose - Point of Care 76 mg/dl (70-99)
[2023-08-21] MEDS: KLONOPIN 0.25 MG PO ×2 (05:01→17:25)
[2023-08-21 05:33] LABS: Glucose - Point of Care 75 mg/dl (70-99)
[2023-08-21] MEDS: NSS 1000 IV ×2 (07:22→20:51)
--- NOTE | 2023-08-21 07:34 | W.PN.HOSP.TC ---
Addendum entered and electronically signed by Tom Weaver MD 08/22/23 15:07:
Normal Weight BMI 18.5 to 24.9
Original Note:
Today's Communication/Plan
-
trial pureed diet as per GI discussion w/ family
cont abx
ST/PT/OT
school bus monitor
IVF supplementation
Assessment / Plan
Assessment / Plan
Physical Exam
General: Not in acute distress
HEENT: Normocephalic
Respiratory: CTAB
Cardiac: S1/S2 and Regular Rhythm
GI: Soft, Non Tender, Non Distended and Normal Bowel Sounds
Musculoskeletal: No Cyanosis and No Edema
Skin: Warm. Dry.
Neuro: Responsive to Verbal Physical stimuli, beyond 'yes' or 'no' communications are largely nonsensical mumbling
Psych:

CT Abdomen Pelvis (as per radiologist's report)
IMPRESSION:
1. MILD RIGHT LOWER LOBE PNEUMONIA.
2. Mild diffuse urinary bladder wall thickening consistent with cystitis.
3. Mildly enlarged prostate gland.
4. Moderate amount of fecal material throughout the colon suggesting constipation.
5. Fusiform infrarenal abdominal aortic aneurysm (2.6 cm diameter).
6. Previous cholecystectomy.
7. 1.2 cm left adrenal mass (possibly an adenoma).

Assessment/Plan
#Sepsis (fever, leukocytosis) secondary to urinary tract fraction/cystitis and pneumonia
#RLL Pneumonia
#Cystitis
-Urinalysis showed 26-30 WBC, cloudy urine
-IV fluids
-Follow urine culture and blood culture: urine culture growing E. coli sensitive to Cefazolin: switch to oral cefdinir for 7 total days of antibiotics
-Completed course of Azithromycin
#Risk for Aspiration with PO Intake
-GI discussion with pt's family regarding potential PEG appreciated
-If feeding tube is to be placed, Plavix will need to be held for 5 days
-Trial Pureed diet
#Constipation
-cont Bowel regimen
Coronary artery disease
-Continue Plavix
-Continue Atorvastatin
Essential hypertension
-Continue amlodipine
Hypercholesterolemia
-Continue statin
reported hx Type 2 diabetes
-Continue glucose accuchecks (relatively consistently Euglycemic)
-Check A1c
Dementia
History of depression/psychosis
-Continue Risperdal, Seroquel, Depakote, clonazepam
-Monitor QTc is on QTc prolonging medications Risperdal and Seroquel
Mild Hypotension 0708 AM noted
likely d/t poor oral intake
resolved w/ small fluid bolus
Sinus Bradycardia
30s-40s when sleeping, 50s when awake
BP stable
asymptomatic
cont to monitor
Full code
DVT prophylaxis�heparin
Diet: Trial Pureed Diet [place] thick liquids as per GI discussion w/ family and speech therapy
I spent a total of 55 minutes with the patient or on the floor. More than 50% of this time involved counseling and coordination of care.
Anticipated Discharge: > 48 hours
Subjective/Interval History
-
Date of Service: August 21, 2023
No acute distress appears comfortable at this time. Responsive to Verbal physical stimuli but verbal communications are largely nonsensical.
Objective Data
-
Vital Signs:
Vital Signs
Temp Pulse Resp BP Pulse Ox
97.7 F 50 16 122/62 98
08/21/23 03:24 08/21/23 03:24 08/21/23 03:24 08/21/23 03:24 08/21/23 03:24
I&O
08/20/23 08/21/23 08/22/23
06:59 06:59 06:59
Intake Total 1150 / 1150 1800 / 1800
Output Total 2049 1550 / 1550
Balance -900 / -900 250 / 250
[2023-08-21] MEDS: NORVASC PO (09:12)
[2023-08-21] MEDS: HEPARIN 5000 UNITS SC ×2 (09:13→20:45)
[2023-08-21] MEDS: VITAMIN B1 100 MG PO (09:13)
[2023-08-21] MEDS: DEPAKOTE (12 HR RELEASE) 500 MG PO ×2 (09:13→20:46)
[2023-08-21] MEDS: PLAVIX 75 MG PO (09:13)
[2023-08-21] MEDS: MIRALAX PO (09:13)
[2023-08-21] MEDS: DEPAKOTE (12 HR RELEASE) 250 MG PO ×2 (09:13→20:46)
[2023-08-21] MEDS: OMNICEF 300 MG PO ×2 (09:13→20:46)
[2023-08-21] MEDS: THERAGRAN 1 TABLET PO (09:13)
[2023-08-21] MEDS: SENOKOT-S 1 TABLET PO ×2 (09:13→20:46)
[2023-08-21] MEDS: RISPERDAL 0.5 MG PO (09:13)
[2023-08-21] MEDS: NSS 500 IV (09:14)
[2023-08-21 11:55] LABS: Glucose - Point of Care 88 mg/dl (70-99)
--- NOTE | 2023-08-21 13:37 | PTCARENOTE ---
Patient's HR in 40s while asleep. Patient drowsy throughout shift but arousable. Dr Weaver made aware.
--- NOTE | 2023-08-21 15:04 | CM ---
Await plan, family deciding on Peg tube placement.
Patient from [facility].
Laura from [facility] updated P#[phone].
[facility] updated.
Plan: back to [facility] when stable.
[facility]
Report# [phone]
[2023-08-21 16:46] LABS: Glucose - Point of Care 101 mg/dl (70-99)
[2023-08-21] MEDS: VITAMIN D3 (cholecalciferol) 50 MCG PO (17:25)
[2023-08-21] MEDS: SEROQUEL 25 MG PO (20:59)
[2023-08-21] MEDS: LIPITOR 40 MG PO (20:59)
[2023-08-21] MEDS: MELATONIN 3 MG PO (20:59)
[2023-08-21 21:19] LABS: Glucose - Point of Care 84 mg/dl (70-99)
[2023-08-21 23:21] LABS: Phosphorus 3.4 mg/dl (2.5-4.5)
[2023-08-22] VITALS (7 sets, daily range): BP systolic 99–136; BP diastolic 50–90; PULSE 56; O2SAT 99
[2023-08-22 03:17] LABS: Glucose - Point of Care 79 mg/dl (70-99)
[2023-08-22] MEDS: KLONOPIN 0.25 MG PO ×2 (05:06→17:48)
[2023-08-22 07:10] LABS: Hematocrit 30.3 % (39.0-52.0); Hemoglobin 10.7 g/dL (13.0-18.0); Mean Corp Hgb Conc. 35.3 g/dL (33.0-37.0); Mean Corpuscular Hgb 32.8 pg (27.0-31.0); Mean Corpuscular Volume 92.9 fL (80.0-94.0); Mean Platelet Volume 9.9 fL (7.4-10.4); Platelet Count 155 10^3/uL (130-400); Red Blood Cell Count 3.26 10^6/uL (4.70-6.10); Red Cell Dist. Width 14.3 % (11.5-14.5); White Blood Cell Count 3.1 10^3/uL (4.8-10.8)
[2023-08-22 07:30] LABS: Blood Urea Nitrogen 15 mg/dl (9-20); Calcium 8.7 mg/dl (8.4-10.2); Carbon Dioxide 28 mmol/L (22-30); Chloride 108 mmol/L (98-107); Estimated Creatinine Clearance 94 ml/min; Glucose 80 mg/dl (70-99); Magnesium 2.1 mg/dl (1.6-2.3); Phosphorus 3.4 mg/dl (2.5-4.5); Potassium 3.9 mmol/L (3.5-5.1); Sodium 142 mmol/L (135-145); eGFR > 60.00
--- NOTE | 2023-08-22 07:34 | W.PN.HOSP.TC ---
Today's Communication/Plan
-
trial pureed diet as per GI discussion w/ family
cont abx
ST/PT/OT
rn cardiac
IVF supplementation completed
Assessment / Plan
Assessment / Plan
Physical Exam
General: Not in acute distress
HEENT: Normocephalic
Respiratory: CTAB
Cardiac: S1/S2 and Regular Rhythm
GI: Soft, Non Tender, Non Distended and Normal Bowel Sounds
Musculoskeletal: No Cyanosis and No Edema
Skin: Warm. Dry.
Neuro: Responsive to Verbal Physical stimuli, beyond 'yes' or 'no' communications are largely nonsensical mumbling
Psych:

CT Abdomen Pelvis (as per radiologist's report)
IMPRESSION:
1. MILD RIGHT LOWER LOBE PNEUMONIA.
2. Mild diffuse urinary bladder wall thickening consistent with cystitis.
3. Mildly enlarged prostate gland.
4. Moderate amount of fecal material throughout the colon suggesting constipation.
5. Fusiform infrarenal abdominal aortic aneurysm (2.6 cm diameter).
6. Previous cholecystectomy.
7. 1.2 cm left adrenal mass (possibly an adenoma).

Assessment/Plan
#Sepsis (fever, leukocytosis) secondary to urinary tract fraction/cystitis and pneumonia
#RLL Pneumonia
#Cystitis
-Urinalysis showed 26-30 WBC, cloudy urine
-IV fluids completed w/ improvement in oral intake
-Follow urine culture and blood culture: urine culture growing E. coli sensitive to Cefazolin: switch to oral cefdinir for 7 total days of antibiotics
-Completed course of Azithromycin
#Risk for Aspiration with PO Intake
-GI discussion with pt's family regarding potential PEG appreciated
-If feeding tube is to be placed, Plavix will need to be held for 5 days
-Trial Pureed diet tolerating so far, good oral intake
#Constipation
-cont Bowel regimen
Coronary artery disease
-Continue Plavix
-Continue Atorvastatin
Essential hypertension
-Continue amlodipine
Hypercholesterolemia
-Continue statin
reported hx Type 2 diabetes
-Continue glucose accuchecks (relatively consistently Euglycemic)
-A1c 5.0 non-diabetic at this time
Dementia
History of depression/psychosis
-Continue Risperdal, Seroquel, Depakote, clonazepam
-Monitor QTc is on QTc prolonging medications Risperdal and Seroquel
Mild Hypotension 07/08 AM noted
likely d/t poor oral intake
resolved w/ small fluid bolus
Sinus Bradycardia
30s-40s when sleeping, 50s when awake
BP stable
asymptomatic
cont to monitor, improving
Full code
DVT prophylaxis�heparin
Diet: Trial Pureed Diet [place] thick liquids as per GI discussion w/ family and speech therapy
I spent a total of 55 minutes with the patient or on the floor. More than 50% of this time involved counseling and coordination of care.
Anticipated Discharge: 24 - 48 hours
Subjective/Interval History
-
Date of Service: August 22, 2023
No acute distress resting comfortably in bed. Appears to be tolerating dysphagia diet well. Mark Bajwa present during evaluation reports baseline mental status.
Objective Data
-
Labs:
Laboratory Results
08/22/23
06:32
WBC 3.1 L
Hgb 10.7 L
Hct 30.3 L
Plt Count 155 D
Sodium 142
Potassium 3.9
Chloride 108 H
Carbon Dioxide 28
BUN 15
Creatinine 0.7
Glucose 80
Calcium 8.7
Vital Signs:
Vital Signs
Temp Pulse Resp BP Pulse Ox
98.1 F 58 16 104/58 98
08/22/23 03:32 08/22/23 03:32 08/22/23 03:32 08/22/23 03:32 08/22/23 03:32
I&O
08/21/23 08/22/23 08/23/23
06:59 06:59 06:59
Intake Total 1800 / 1800 3080 / 3080
Output Total 1550 / 1550 1525 / 1525
Balance 250 / 250 1555 / 1555
[2023-08-22 08:00] LABS: Glucose - Point of Care 63 mg/dl (70-99)
[2023-08-22 08:23] LABS: Glucose - Point of Care 70 mg/dl (70-99)
[2023-08-22] MEDS: THERAGRAN 1 TABLET PO (08:25)
[2023-08-22] MEDS: PLAVIX 75 MG PO (08:25)
[2023-08-22] MEDS: RISPERDAL 0.5 MG PO (08:25)
[2023-08-22] MEDS: HEPARIN 5000 UNITS SC ×2 (08:25→21:19)
[2023-08-22] MEDS: VITAMIN B1 100 MG PO (08:25)
[2023-08-22] MEDS: OMNICEF 300 MG PO ×2 (08:25→21:19)
[2023-08-22] MEDS: DEPAKOTE (12 HR RELEASE) 250 MG PO ×2 (08:25→21:18)
[2023-08-22] MEDS: MIRALAX 17 GRAMS PO (08:25)
[2023-08-22] MEDS: SENOKOT-S 1 TABLET PO ×2 (08:26→21:19)
[2023-08-22] MEDS: DEPAKOTE (12 HR RELEASE) 500 MG PO ×2 (08:26→21:18)
[2023-08-22] MEDS: NORVASC 2.5 MG PO (08:26)
[2023-08-22 10:23] LABS: Glucose - Point of Care 125 mg/dl (70-99)
[2023-08-22] MEDS: NSS 1000 IV (10:23)
--- NOTE | 2023-08-22 11:18 | PN.CDI ---
CDI
- -
CDI:
Physician Documentation Request
Admit Date: 08/16/23 22:05
Dear Doctor Meg,
Patient admitted for sepsis.
Please review the following and provide your response in the progress notes.
Clinical Indicators:
Height: 6'
Weight:141 lbs
BMI:19.2
If possible, please provide an associated diagnosis related to the abnormal BMI, such as:
Underweight
Cachectic
BMI is not significant
Other
BMI < or = to 19.9
Underweight
Weight Loss
Cachectic
Anorexia
Use of terms such as suspected, likely, concern for, or probable (associated with a specific diagnosis that is being evaluated, monitored, or treated as if it exists) are acceptable and can be coded in the inpatient setting, when documented at the
time of discharge.
Thank you,
Kim Deleon RN, BSN
CDI Specialist
Available via [place] text
Please use your independent medical judgment in providing your response.
--- NOTE | 2023-08-22 11:26 | PTOTSP ---
Speech Language Pathology
Pt seen for dysphagia tx. Pt alert with infrequent unintelligible verbalizations. Family opted for trial diet 08/20, and IDDSI Level 4 (Puree) and Mildly Thick Liquids were initiated. PCT reported no overt difficulty with breakfast this date. On
VSE, trace amounts of aspiration were silent, so unable to rule out silent aspiration bedside. Larger amounts of aspiration VSE with cough response noted.
Seen with P.O. trials of mildly thick liquids via single straw sips (CUSTOMS INSPECTOR pinched straw to ensure single sips only) and puree via tsp. Munching mastication pattern noted, which continued post swallow when oral cavity clear. No overt signs of
aspiration, but again, unable to rule out trace silent aspiration at bedside.
WBC 3.1 this date, is afebrile, and remains on room air. Will continue to monitor tolerance based on respiratory status/WBC.
Recommend:
(1) IDDSI Level 4 (Puree) and Mildly Thick liquids with family willing to accept risk for aspiration
(2) Aspiration precautions: slow rate, sit upright, full supervision, single sips (pinch straw)
(3) Meds crushed in puree as able
(4) CUSTOMS INSPECTOR to continue to follow
[2023-08-22 12:25] LABS: Glucose - Point of Care 138 mg/dl (70-99)
[2023-08-22 16:53] LABS: Glucose - Point of Care 132 mg/dl (70-99)
[2023-08-22] MEDS: VITAMIN D3 (cholecalciferol) 50 MCG PO (17:48)
[2023-08-22] MEDS: MELATONIN 3 MG PO (21:18)
[2023-08-22] MEDS: LIPITOR 40 MG PO (21:18)
[2023-08-22] MEDS: SEROQUEL 25 MG PO (21:18)
[2023-08-22 21:59] LABS: Glucose - Point of Care 133 mg/dl (70-99)
[2023-08-23] VITALS (7 sets, daily range): BP systolic 110–132; BP diastolic 64–94; PULSE 76
[2023-08-23 02:37] LABS: Glucose - Point of Care 91 mg/dl (70-99)
[2023-08-23 04:59] LABS: Hematocrit 29.8 % (39.0-52.0); Hemoglobin 10.6 g/dL (13.0-18.0); Mean Corp Hgb Conc. 35.6 g/dL (33.0-37.0); Mean Corpuscular Hgb 32.4 pg (27.0-31.0); Mean Corpuscular Volume 91.1 fL (80.0-94.0); Mean Platelet Volume 9.9 fL (7.4-10.4); Platelet Count 169 10^3/uL (130-400); Red Blood Cell Count 3.27 10^6/uL (4.70-6.10); Red Cell Dist. Width 14.3 % (11.5-14.5)
[2023-08-23 05:09] LABS: Blood Urea Nitrogen 20 mg/dl (9-20); Calcium 8.5 mg/dl (8.4-10.2); Carbon Dioxide 28 mmol/L (22-30); Chloride 106 mmol/L (98-107); Estimated Creatinine Clearance 94 ml/min; Glucose 71 mg/dl (70-99); Phosphorus 3.8 mg/dl (2.5-4.5); Potassium 3.8 mmol/L (3.5-5.1); Sodium 140 mmol/L (135-145); eGFR > 60.00
[2023-08-23] MEDS: KLONOPIN 0.25 MG PO ×2 (05:47→17:03)
--- NOTE | 2023-08-23 07:17 | W.PN.HOSP.TC ---
Today's Communication/Plan
-
monitor
likely discharge back to [facility] tomorrow if remains stable/continues to improve
Assessment / Plan
Assessment / Plan
Physical Exam
General: Not in acute distress
HEENT: Normocephalic
Respiratory: CTAB
Cardiac: S1/S2 and Regular Rhythm
GI: Soft, Non Tender, Non Distended and Normal Bowel Sounds
Musculoskeletal: No Cyanosis and No Edema
Skin: Warm. Dry.
Neuro: Responsive to Verbal Physical stimuli, beyond 'yes' or 'no' communications are largely nonsensical mumbling
Psych:

CT Abdomen Pelvis (as per radiologist's report)
IMPRESSION:
1. MILD RIGHT LOWER LOBE PNEUMONIA.
2. Mild diffuse urinary bladder wall thickening consistent with cystitis.
3. Mildly enlarged prostate gland.
4. Moderate amount of fecal material throughout the colon suggesting constipation.
5. Fusiform infrarenal abdominal aortic aneurysm (2.6 cm diameter).
6. Previous cholecystectomy.
7. 1.2 cm left adrenal mass (possibly an adenoma).

Assessment/Plan
#Sepsis (fever, leukocytosis) secondary to urinary tract fraction/cystitis and pneumonia
#RLL Pneumonia
#Cystitis
-Urinalysis showed 26-30 WBC, cloudy urine
-IV fluids completed w/ improvement in oral intake
-Follow urine culture and blood culture: urine culture growing E. coli sensitive to Cefazolin: switch to oral cefdinir for 7 total days of antibiotics completed
-Completed course of Azithromycin
#Risk for Aspiration with PO Intake
-GI discussion with pt's family regarding potential PEG appreciated
-If feeding tube is to be placed, Plavix will need to be held for 5 days
-Trial Pureed diet tolerating so far, good oral intake
#Constipation
-cont Bowel regimen
Coronary artery disease
-Continue Plavix
-Continue Atorvastatin
Essential hypertension
-Continue amlodipine
Hypercholesterolemia
-Continue statin
reported hx Type 2 diabetes
-Continue glucose accuchecks (relatively consistently Euglycemic)
-A1c 5.0 non-diabetic at this time
Dementia
History of depression/psychosis
-Continue Risperdal, Seroquel, Depakote, clonazepam
-Monitor QTc is on QTc prolonging medications Risperdal and Seroquel
Mild Hypotension 07/08 AM noted
likely d/t poor oral intake
resolved w/ small fluid bolus
Sinus Bradycardia
30s-40s when sleeping, 50s when awake
BP stable
asymptomatic
cont to monitor, since improved
Full code
DVT prophylaxis�heparin
Diet: Trial Pureed Diet [place] thick liquids appears to be tolerating well
I spent a total of 55 minutes with the patient or on the floor. More than 50% of this time involved counseling and coordination of care.
Anticipated Discharge: Within 24 hours
Subjective/Interval History
-
Date of Service: August 23, 2023
Seen and examined at bedside in no acute distress sitting up comfortably in bed. Tolerating diet well.
Objective Data
-
Labs:
Laboratory Results
08/23/23
04:37
WBC 4.0 L
Hgb 10.6 L
Hct 29.8 L
Plt Count 169
Sodium 140
Potassium 3.8
Chloride 106
Carbon Dioxide 28
BUN 20
Creatinine 0.7
Glucose 71
Calcium 8.5
Vital Signs:
Vital Signs
Temp Pulse Resp BP Pulse Ox
98.7 F 61 18 117/78 98
08/23/23 03:35 08/23/23 03:35 08/23/23 03:35 08/23/23 03:35 08/23/23 03:35
I&O
08/22/23 08/23/23 08/24/23
06:59 06:59 06:59
Intake Total 3080 / 3080 480 / 480
Output Total 1525 / 1525
Balance 1555 / 1555 480 / 480
[2023-08-23 07:22] LABS: Glucose - Point of Care 69 mg/dl (70-99)
[2023-08-23 07:38] LABS: Glucose - Point of Care 83 mg/dl (70-99)
[2023-08-23] MEDS: DEPAKOTE (12 HR RELEASE) 250 MG PO ×2 (08:18→20:48)
[2023-08-23] MEDS: DEPAKOTE (12 HR RELEASE) 500 MG PO ×2 (08:18→20:48)
[2023-08-23] MEDS: MIRALAX 17 GRAMS PO (08:18)
[2023-08-23] MEDS: HEPARIN 5000 UNITS SC ×2 (08:22→20:49)
[2023-08-23] MEDS: VITAMIN B1 100 MG PO (08:23)
[2023-08-23] MEDS: PLAVIX 75 MG PO (08:23)
[2023-08-23] MEDS: NORVASC 2.5 MG PO (08:24)
[2023-08-23] MEDS: THERAGRAN PO (08:25)
[2023-08-23] MEDS: OMNICEF 300 MG PO ×2 (08:25→20:45)
[2023-08-23] MEDS: RISPERDAL 0.5 MG PO (08:26)
[2023-08-23] MEDS: SENOKOT-S 1 TABLET PO ×2 (08:26→20:46)
--- NOTE | 2023-08-23 11:40 | CM ---
Spoke with niece at bedside . Pt has started eating . Family declined Peg placement.
Patient custodial at [facility]. Larua from [facility] P#[phone].
[place] need [place] at [place].
Imm signed by niece copy on chart.
[facility]
Report# [phone]

PLAN: return to [facility]
[2023-08-23 11:43] LABS: Glucose - Point of Care 77 mg/dl (70-99)
[2023-08-23 16:39] LABS: Glucose - Point of Care 128 mg/dl (70-99)
[2023-08-23] MEDS: THERAGRAN 1 TABLET PO (17:03)
[2023-08-23] MEDS: VITAMIN D3 (cholecalciferol) 50 MCG PO (17:04)
--- NOTE | 2023-08-23 17:28 | CM ---
Advanced diet to purre.
Continue IV antibiotics.
Patient care home at [facility]. Laura from [facility] P#[phone].
Will need ambulance at [place].
[facility]
Report# [phone]

PLAN: return to [facility]
[2023-08-23] MEDS: LIPITOR 40 MG PO (20:46)
[2023-08-23] MEDS: MELATONIN 3 MG PO (20:46)
[2023-08-23] MEDS: SEROQUEL 25 MG PO (20:47)
[2023-08-23 21:06] LABS: Glucose - Point of Care 107 mg/dl (70-99)
[2023-08-24 03:31] LABS: Glucose - Point of Care 80 mg/dl (70-99)
[2023-08-24 03:37] VITALS: BP 121/71
[2023-08-24 05:16] LABS: Hematocrit 31.6 % (39.0-52.0); Mean Corp Hgb Conc. 34.8 g/dL (33.0-37.0); Mean Corpuscular Hgb 32.1 pg (27.0-31.0); Mean Corpuscular Volume 92.1 fL (80.0-94.0); Mean Platelet Volume 9.6 fL (7.4-10.4); Platelet Count 191 10^3/uL (130-400); Red Blood Cell Count 3.43 10^6/uL (4.70-6.10); Red Cell Dist. Width 14.5 % (11.5-14.5); White Blood Cell Count 4.6 10^3/uL (4.8-10.8)
[2023-08-24] MEDS: KLONOPIN 0.25 MG PO ×2 (05:18→17:14)
[2023-08-24 05:40] LABS: Blood Urea Nitrogen 20 mg/dl (9-20); Calcium 9.1 mg/dl (8.4-10.2); Carbon Dioxide 30 mmol/L (22-30); Chloride 104 mmol/L (98-107); Estimated Creatinine Clearance 82 ml/min; Glucose 80 mg/dl (70-99); Magnesium 2.2 mg/dl (1.6-2.3); Phosphorus 4.2 mg/dl (2.5-4.5); Potassium 4.1 mmol/L (3.5-5.1); Sodium 141 mmol/L (135-145); eGFR > 60.00
--- NOTE | 2023-08-24 06:49 | W.PN.HOSP.TC ---
Addendum entered and electronically signed by Tom Weaver MD 08/24/23 23:32:
Stage 1/ stage 2 pressure ulcer sacrum
Original Note:
Today's Communication/Plan
-
discharge
Assessment / Plan
Assessment / Plan
Physical Exam
General: Not in acute distress
HEENT: Normocephalic
Respiratory: CTAB
Cardiac: S1/S2 and Regular Rhythm
GI: Soft, Non Tender, Non Distended and Normal Bowel Sounds
Musculoskeletal: No Cyanosis and No Edema
Skin: Warm. Dry.
Neuro: Largely nonverbal baseline
Psych: calm cooperative

CT Abdomen Pelvis (as per radiologist's report)
IMPRESSION:
1. MILD RIGHT LOWER LOBE PNEUMONIA.
2. Mild diffuse urinary bladder wall thickening consistent with cystitis.
3. Mildly enlarged prostate gland.
4. Moderate amount of fecal material throughout the colon suggesting constipation.
5. Fusiform infrarenal abdominal aortic aneurysm (2.6 cm diameter).
6. Previous cholecystectomy.
7. 1.2 cm left adrenal mass (possibly an adenoma).

Assessment/Plan
#Sepsis (fever, leukocytosis) secondary to urinary tract fraction/cystitis and pneumonia
#RLL Pneumonia
#Cystitis
-Urinalysis showed 26-30 WBC, cloudy urine
-IV fluids completed w/ improvement in oral intake
-Follow urine culture and blood culture: urine culture growing E. coli sensitive to Cefazolin: switch to oral cefdinir for 7 total days of antibiotics completed
-Completed course of Azithromycin
#Risk for Aspiration with PO Intake
-GI discussion with pt's family regarding potential PEG appreciated
-If feeding tube is to be placed, Plavix will need to be held for 5 days
-Trial Pureed diet tolerating so far, good oral intake
#Constipation
-cont Bowel regimen
Coronary artery disease
-Continue Plavix
-Continue Atorvastatin
Essential hypertension
-Continue amlodipine
Hypercholesterolemia
-Continue statin
reported hx Type 2 diabetes
-Continue glucose accuchecks (relatively consistently Euglycemic)
-A1c 5.0 non-diabetic at this time
Dementia
History of depression/psychosis
-Continue Risperdal, Seroquel, Depakote, clonazepam
-recent EKG no significant QT prolongation.
Sinus Bradycardia
30s-40s when sleeping, 50s when awake
BP stable
asymptomatic
cont to monitor, since improved
Full code
DVT prophylaxis�heparin
Diet: Trial Pureed Diet [place] thick liquids appears to be tolerating well
Medically stable for discharge back to [facility] with outpatient follow up recommendations.
Discussed with patient's sister Sophia Beard over phone
Total Time Preparing Discharge ___50___ minutes including examination of the patient, summary of the hospital stay, instructions for continuing care to all relevant caregivers; and preparation of discharge records, prescriptions, and referral forms
if necessary.
Anticipated Discharge: Today
Subjective/Interval History
-
Date of Service: August 24, 2023
Seen and examined at bedside in no acute distress sitting up comfortably in bed.
Objective Data
-
Labs:
Laboratory Results
08/24/23
05:03
WBC 4.6 L
Hgb 11.0 L
Hct 31.6 L
Plt Count 191
Sodium 141
Potassium 4.1
Chloride 104
Carbon Dioxide 30
BUN 20
Creatinine 0.8
Glucose 80
Calcium 9.1
Vital Signs:
Vital Signs
Temp Pulse Resp BP Pulse Ox
97.9 F 55 18 121/71 96
08/24/23 03:37 08/24/23 03:37 08/24/23 03:37 08/24/23 03:37 08/24/23 03:37
I&O
08/22/23 08/23/23 08/24/23
06:59 06:59 06:59
Intake Total 3080 / 3080 480 / 480 480 / 480
Output Total 1525 / 1525
Balance 1555 / 1555 480 / 480 480 / 480
[2023-08-24 06:54] LABS: Glucose - Point of Care 80 mg/dl (70-99)
[2023-08-24 07:00] VITALS: BP 125/74
[2023-08-24] MEDS: DEPAKOTE (12 HR RELEASE) 250 MG PO (07:29)
[2023-08-24] MEDS: HEPARIN 5000 UNITS SC (07:29)
[2023-08-24] MEDS: DEPAKOTE (12 HR RELEASE) 500 MG PO (07:29)
[2023-08-24] MEDS: RISPERDAL 0.5 MG PO (07:31)
[2023-08-24] MEDS: PLAVIX 75 MG PO (07:31)
[2023-08-24] MEDS: VITAMIN B1 100 MG PO (07:31)
[2023-08-24] MEDS: SENOKOT-S 1 TABLET PO (07:32)
[2023-08-24] MEDS: THERAGRAN 1 TABLET PO (07:32)
[2023-08-24] MEDS: NORVASC 2.5 MG PO (07:33)
[2023-08-24] MEDS: MIRALAX 17 GRAMS PO (07:36)
[2023-08-24 11:00] VITALS: BP 109/69
[2023-08-24 11:46] LABS: Glucose - Point of Care 127 mg/dl (70-99)
--- NOTE | 2023-08-24 13:41 | W.DCSUMMARY ---
Discharge Summary
Discharge Data
Date of Admission: 08/16/23
Date of Discharge: 08/24/23
-
Pending Results: No
Discharge Plan
-
Patient Disposition: [facility]
Discharge Diagnosis/Procedures: Sepsis (fever, leukocytosis) secondary to urinary tract fraction/cystitis and pneumonia (resolved, completed antibiotics)
Dysphagia, tolerating Pureed Diet with [place] thick liquids
Coronary artery disease
Essential hypertension
Hypercholesterolemia
Reported History Diabetes, currently non-diabetic most recent A1c 5.0
Dementia
depression/psychosis
Sinus Bradycardia Mild
Left Adrenal mass suspected adenoma 1.2 cm
Abdomen Aortic Aneurysm 2.6 cm
Condition: Fair
Diet: Other diet
Additional Diets: Pureed Diet with [place] Thick Liquids
Aspiration precautions: slow rate, sit upright, full supervision, single sips (pinch straw)
Meds crushed in puree as able
Activity: With assistance
Driving Restrictions: No driving
Bathing Restrictions: None
Others Tests: Repeat CT abdomen/pelvis with primary care provider in 1 month of discharge to follow up possible 1.2 cm left Adrenal Adenoma and Abdomen Aortic Aneurysm 2.6 cm
Other Services: PT, OT and ST
Activity Restrictions/Additional Instructions:
Please follow up with primary care provider in 1 week of discharge.
Referrals:
Janet Carmona CRNP [Family Provider] - in one week
Prescriptions:
Continued
atorvastatin 40 MG tablet
40 mg PO HS
acetaminophen 325 MG tablet
650 mg PO Q4HPRN MDD 3000 mg PRN (Reason: mild pain/fever >101)
thiamine HCl (vitamin B1) 100 MG tablet
100 mg PO DAILY
melatonin 3 MG tablet
3 mg PO HS
clopidogrel 75 MG tablet
75 mg PO DAILY
amlodipine 5 MG tablet
2.5 mg PO DAILY
divalproex 500 MG tablet,delayed release (DR/EC)
500 mg PO BID
Rx Instructions:
take with 250 mg tab for total of 750 mg
magnesium hydroxide 30 ML suspension
30 ml PO [id number] PRN (Reason: if no bm x 3 days)
bisacodyl [OneLAX Bisacodyl] 10 MG suppository
10 mg CA DAILYPRN PRN (Reason: if no bm 24 hrs after mom)
diphenhydramine HCl [Banophen] 25 MG capsule
25 mg PO Q6HPRN PRN (Reason: itching)
Enema 135 ML enema
118 ml CA DAILYPRN PRN (Reason: if no bm 24 hrs after bisacodyl supp)
nitroglycerin 0.4 MG tablet, sublingual
0.4 mg sublingual [id number] PRN (Reason: chest pain)
quetiapine [Seroquel] 50 MG tablet
25 mg PO HS
divalproex [Depakote] 250 mg Tablet,Delayed Release (Dr/Ec)
250 mg PO BID
Rx Instructions:
take with 500 mg tab for total of 750 mg
therapeutic multivitamin Tablet
1 tab PO DAILY
risperidone [Risperdal] 0.5 mg Tablet
0.5 mg PO DAILY
clonazepam 0.25 mg Tablet,Disintegrating
0.25 mg PO Q12H
Aveeno Anti-Itch 1-3 % Lotion
1 applic TOPICAL Q6HPRN PRN (Reason: puritis)
cholecalciferol (vitamin D3) 50 mcg (2,000 unit) Tablet
50 mcg PO NOON
Discharge Orders:
Discharge Patient (As Directed); Ordered 08/24/23
Ordered By: Tom Weaver
Discharge Date and Time
Print Language: HEBREW
--- NOTE | 2023-08-24 13:52 | CM ---
met with patient at bedside.patient is stable to return to [facility].i spoke with therapy who suggests patient returns in skilled capacity.called prua from [facility] and she is able to take patient back to facility.facility wants to know
if patient is on thickened or unthickened liquids.
ambulance transport to be arranged.sister sherie contreras called to let her know patient is returning to facility.
phone number for nurse to call report is [phone] . fax is not working.please send copy of chart with patient.
--- NOTE | 2023-08-24 14:27 | PN.CDI ---
CDI
- -
CDI:
Physician Documentation Request
Admit Date: 08/16/23 22:05
Dear Doctor Meg,
Patient admitted for sepsis.
08/15-08/23 Nursing documentation: 'Stage 1/ stage 2 pressure ulcer sacrum'
08/22 Studio Director: 'Skin: stage 1 sacrum'
Physician documentation of the type and location of wounds is required for compliant documentation. Based on the above clinical findings and your assessment, please provide the following in your progress note:
1. Location of the ulcer/wound, including laterality.
2. Type (etiology) of ulcer/wound:
- Diabetic ulcer
- Arterial (ischemic) ulcer
- Traumatic wound
- Venous stasis ulcer
- Pressure (decubitus) ulcer
- Non-healing surgical wound
- Other
- Unable to determine
3. For a non-pressure ulcer, please indicate the depth/severity:
- Limited to the breakdown of skin
- With fat layer exposed
- With necrosis of muscle
- With necrosis of bone
- Other
- Unable to determine
4. If a pressure ulcer, please also include the stage* of the ulcer:
- Stage 1 - Skin intact, non-blanchable redness
- Stage 2 - Partial thickness loss of dermis, includes intact or open blister
- Stage 3 - Full thickness tissue not including bone, tendon or muscle
- Stage 4 - Full thickness tissue loss, including exposed bone, tendon or muscle
- Unstageable - Full thickness loss in which the base of the ulcer is covered by slough (yellow, english, bazzi, green or brown) and/or eschar (english, brown or black) in the wound bed.
- Unable to determine
Use of terms such as suspected, likely, concern for, or probable (associated with a specific diagnosis that is being evaluated, monitored, or treated as if it exists) are acceptable and can be coded in the inpatient setting, when documented at the
time of discharge.
Thank you,
Kim Deleon RN, BSN
CDI Specialist
Available via [place] text
Please use your independent medical judgment in providing your response.
*Source: National Pressure Ulcer Advisory Panel (NPUAP)
[2023-08-24 15:00] VITALS: BP 130/67
[2023-08-24] MEDS: VITAMIN D3 (cholecalciferol) 50 MCG PO (17:14)
== END 2023-08-24 18:22 | DRG 871 ==
LOC: 4 EAST ACU 22:05
PROVIDERS: Hospitalist; ADMITTING PHYSICIAN Hospitalist; ATTENDING PHYSICIAN Internal Medicine; CONSULT PHYSICIAN Internal Medicine Gastroenterology; EMERGENCY PHYSICIAN Emergency Medicine; FAMILY PHYSICIAN Nurse Practitioner
DX: A41.9 Sepsis, unspecified organism (principal); J69.0 Pneumonitis due to inhalation of food and vomit; N39.0 Urinary tract infection, site not specified; L89.152 Pressure ulcer of sacral region, stage 2
CPT/HCPCS: 51701; 71045; 74176; 74230; 80048; 80053; 80164; 81003; 81015; 82962; 83036; 83605; 83735; 84100; 85025; 85027; 87040; 87070; 87086; 87088; 87186; 92526; 92610; 92611; 93005; 96374; 97163; 97167; 97530; 99285